=== PATIENT | female | born 1935 | race Caucasian/White ===

== ENCOUNTER 2016-04-28 06:53 | Emergency (ER) | payer OTHER ==
[~2016-04-28] VITALS: Ht 167.6 cm; Wt 66.7 kg
[2016-04-28] MEDS ORDERED: FAMOTIDINE/PF INJ 20 MG/2 ML VIAL IV ONE ×2 (07:00→07:18)
[2016-04-28 07:44] LABS: BASOPHILS # (AUTO) 0.1 /CMM (0.0-0.2); BASOPHILS % (AUTO) 1.2 % (0.0-2.0); DIFF TOTAL % 100 %; EOSINOPHILS % (AUTO) 0.6 % (0.0-6.0); HEMATOCRIT 47 % (33-45); HEMOGLOBIN 15.5 g/dL (11.5-14.8); LYMPHOCYTES # (AUTO) 1.4 /CMM (0.8-4.8); MEAN CORPUSCULAR HEMOGLOBIN 29 PG (26.0-33.0); MEAN CORPUSCULAR HGB CONC 33 g/dl (31.0-36.0); MEAN CORPUSCULAR VOLUME 89 fL (82-100); MONOCYTES # (AUTO) 0.6 /CMM (0.1-1.30); MONOCYTES % (AUTO) 8.7 % (2.0-12.0); NEUTROPHILS # (AUTO) 4.6 /CMM (1.8-8.9); NEUTROPHILS % (AUTO) 68.5 % (43.0-81.0); PLATELET COUNT (AUTO) 303 /CMM (150-450); RED BLOOD CELL COUNT(AUTO) 5.26 MIL/uL (4.0-5.2); WHITE BLOOD COUNT (AUTO) 6.8 K/uL (4.3-11.0)
[2016-04-28 07:54] LABS: ANION GAP 10 (5-14); CARBON DIOXIDE 30 mmol/L (21-32); CHLORIDE 97 mmol/L (98-107); CREATININE 0.7 mg/dL (0.6-1.3); GLUCOSE 117 mg/dL (74-106); POTASSIUM 3.7 mmol/L (3.5-5.1); SODIUM SERUM 133 mmol/L (136-145); UREA NITROGEN, BLOOD 18 mg/dL (7-18)
[2016-04-28 08:00] LABS: ALANINE AMINOTRANSFERASE 24 U/L (12-78); ALBUMIN 4.1 g/dL (3.4-5.0); ASPARTATE AMINOTRANSFERASE 14 U/L (15-37); BILIRUBIN,DIRECT 0.1 mg/dL (0.0-0.2); BILIRUBIN,TOTAL 0.5 mg/dL (0.2-1.0); INDIRECT BILIRUBIN 0.4 mg/dL (0.0-1.1); TOTAL PROTEIN, SERUM 7.7 g/dL (6.4-8.2)
[2016-04-28 08:02] LABS: LACTIC ACID 1.6 mmol/L (0.4-2.0); TROPONIN I < 0.017 ng/mL (0.00-0.056)
[2016-04-28] MEDS ORDERED: ATEN50TA PO (08:14)
[2016-04-28] MEDS ORDERED: MELO-270 PO (08:14)
[2016-04-28] MEDS ORDERED: HYDR12.5 PO (08:14)
[2016-04-28 08:53] LABS: KETONES,URINE NEGATIVE (NEGATIVE); LEUKOCYTE ESTERASE ,URINE NEGATIVE (NEGATIVE); PH,URINE 6.5 (5.0-8.0)
[2016-04-28 08:54] LABS: ADD UA MICROSCOPIC YES
[2016-04-28 09:00] LABS: ADD URINE CULTURE NO; WBC,URINE 0-2 /HPF (0-3)
[2016-04-28] MEDS ORDERED: BOOST PLUS FOOD-CHOCLATE 237 ML BOX PO ONE (10:30)
[2016-04-28 12:18] VITALS: BP 158/76
== END 2016-04-28 12:43 | disposition short-term general hospital (02) ==
LOC: ER 06:54
DX: R25.1 Tremor, unspecified (principal); I10 Essential (primary) hypertension; C50.911 Malignant neoplasm of unspecified site of right female breast; Z88.2 Allergy status to sulfonamides; Z90.11 Acquired absence of right breast and nipple; Z98.890 Other specified postprocedural states
CPT/HCPCS: 36415; 71010; 80048; 80076; 81001; 83605; 83690; 84484; 85025; 87040 ×2; 87081; 87086; 93005; 96374; 99285; A4606; J3490; 81000-TC; Z7610

== ENCOUNTER 2016-06-01 22:06 | Inpatient (IN) | payer OTHER ==
[~2016-06-01] VITALS: Ht 170.2 cm; Wt 63.5 kg
[~2016-06-01 22:06] MED LIST: ATEN50TA PO; HYDR12.5 PO; MELO-270 PO
[2016-06-01] MEDS ORDERED: IV NS 0.9% 1,000 ML BAG IV ONE (22:30)
[2016-06-01] MEDS ORDERED: IV NS 0.9% 1,000 ML ONE (22:45)
[2016-06-01] MEDS ORDERED: IV SET PRIMARY 1 EA INFUS.SET MC ONE (22:45)
--- NOTE | 2016-06-01 22:45 | NUR ---
PT ALTERED BREATHING EFFORTLESSLY ON ROOM AIR, PT BIBA S/P TAKING HER MEDICATIONS ON A SI ATTEMPT. PER EMS PT FOUND ON BED WITH OPEN PILL BOTTLES AND A SI NOTE. IV PLACED PRIOR TO ARRIVAL, PT ON MONITOR, EKG DONE, MADE AWARE, WILL CONTINUE TO MONTIOR.
[2016-06-01 23:13] LABS: BASOPHILS # (AUTO) 0.2 /CMM (0.0-0.2); BASOPHILS % (AUTO) 1.5 % (0.0-2.0); EOSINOPHILS % (AUTO) 0.2 % (0.0-6.0); HEMATOCRIT 48 % (33-45); HEMOGLOBIN 16.3 g/dL (11.5-14.8); LYMPHOCYTES # (AUTO) 0.9 /CMM (0.8-4.8); MEAN CORPUSCULAR HEMOGLOBIN 31 PG (26.0-33.0); MEAN CORPUSCULAR HGB CONC 34 g/dl (31.0-36.0); MEAN CORPUSCULAR VOLUME 90 fL (82-100); MONOCYTES # (AUTO) 0.3 /CMM (0.1-1.30); MONOCYTES % (AUTO) 2.7 % (2.0-12.0); NEUTROPHILS % (AUTO) 88.6 % (43.0-81.0); PLATELET COUNT (AUTO) 344 /CMM (150-450); RDW COEFFICIENT OF VARIATION 13.5 (11.5-15.0); RED BLOOD CELL COUNT(AUTO) 5.32 MIL/uL (4.0-5.2); WHITE BLOOD COUNT (AUTO) 12.4 K/uL (4.3-11.0)
[2016-06-01 23:23] LABS: CALCIUM, SERUM 9.3 mg/dL (8.5-10.1); CARBON DIOXIDE 17 mmol/L (21-32); CHLORIDE 90 mmol/L (98-107); CREATININE 0.8 mg/dL (0.6-1.3); GLUCOSE 240 mg/dL (74-106); POTASSIUM 4.4 mmol/L (3.5-5.1); SODIUM SERUM 125 mmol/L (136-145); UREA NITROGEN, BLOOD 21 mg/dL (7-18)
[2016-06-01 23:29] LABS: ALANINE AMINOTRANSFERASE 25 U/L (12-78); ALBUMIN 3.4 g/dL (3.4-5.0); ALKALINE PHOSPHATASE 111 U/L (46-116); ASPARTATE AMINOTRANSFERASE 27 U/L (15-37); BILIRUBIN,DIRECT 0.1 mg/dL (0.0-0.2); BILIRUBIN,TOTAL 0.2 mg/dL (0.2-1.0); INR 1.07 (0.87-1.13); PROTHROMBIN TIME 11.1 SECS (9.5-12.7); TOTAL PROTEIN, SERUM 7.7 g/dL (6.4-8.2)
[2016-06-01 23:31] LABS: TROPONIN I < 0.017 ng/mL (0.00-0.056)
[2016-06-01 23:43] LABS: LACTIC ACID 1.9 mmol/L (0.4-2.0)
--- NOTE | 2016-06-01 23:59 | NUR ---
URINE COLLECTED AND PT IS ON MONITOR, MD LAWRENCE MADE AWARE LABS CALLED WILL CONTINUE TO MONITOR.
[2016-06-02 00:10] LABS: SALICYLATE 112.4 mg/dL (2.8-20.0)
--- NOTE | 2016-06-02 00:19 | NUR ---
PT ASSIGNED TO ICU [id number]
[2016-06-02 00:20] LABS: APPEARANCE,URINE CLEAR (CLEAR); BILIRUBIN,URINE NEGATIVE (NEGATIVE); BLOOD, URINE NEGATIVE Ery/uL (NEGATIVE); COLOR,URINE YELLOW (YELLOW); KETONES,URINE TRACE (NEGATIVE); LEUKOCYTE ESTERASE ,URINE NEGATIVE (NEGATIVE); NITRITE, URINE POSITIVE (NEGATIVE); PH,URINE 6.5 (5.0-8.0); PROTEIN,URINE NEGATIVE (NEGATIVE); UGLUCOSE 1+ mg/dL (NEGATIVE); UROBILINOGEN,URINE 0.2 EU/dL (0.2)
[2016-06-02] MEDS ORDERED: PROPOFOL 100 ML IV ONE (00:29)
[2016-06-02] MEDS ORDERED: IV SET PRIMARY PUMP SET 1 EA INFUS.SET MC ONE ×4 (00:29→05:52)
[2016-06-02] MEDS ORDERED: ACETYLCYSTEINE IV 6,000 MG/30 ML VIAL IV ONE ×2 (00:30→02:30)
[2016-06-02 00:33] LABS: ADD URINE CULTURE YES; BACTERIA,URINE None seen /HPF (None Seen); CLINITEST,URINE 1; RBC,URINE 0-2 /HPF (0-2); SQUAMOUS EPITHELIAL CELL,UR Few /HPF (None Seen); WBC,URINE 0-2 /HPF (0-3)
[2016-06-02] MEDS ORDERED: POTASSIUM CL. PREMIX PERIPHER. 50 ML ONE ×2 (00:41→05:52)
[2016-06-02] MEDS ORDERED: SODIUM BICARBONATE SYR 50 MEQ/50 ML DISP.SYRIN ONE ×2 (00:41→00:47)
[2016-06-02] MEDS ORDERED: IV D5W 1,000 ML IV ONE (00:42)
--- NOTE | 2016-06-02 00:57 | NUR ---
SON #[phone] JASWANT VENTURA
--- NOTE | 2016-06-02 00:58 | NUR ---
SPOKE TO DIETER AND PER MD JUANCHO GARCIAS AUTHORIZED PT TO STAY HERE
[2016-06-02] MEDS ORDERED: MISCELLANEOUS MED 1 EA EA XX ONE (01:00)
[2016-06-02] MEDS ORDERED: POTASSIUM CL. PREMIX PERIPHER. 50 ML IV ONE (01:00)
[2016-06-02] MEDS ORDERED: SODIUM BICARBONATE SYR 50 MEQ/50 ML DISP.SYRIN IV ONE (01:00)
[2016-06-02 01:11] LABS: ABG BASE EXCESS -5.2 mmol/L; ABG PCO2 16.4 mmHg (35.0-45.0); ABG PH 7.545 (7.350-7.450); ABG PO2 110.7 mmHg (75.0-100.0); ABG TOTAL HEMOGLOBIN 15.2 G/dL (12.0-16.0); AaDO2 19.4 mmHg; COHb 0.2 % (0.5-1.5); MetHb 0.6 % (0.0-1.5); O2Hb 97.2 % (94.0-97.0); SITE, ABG Right Radial; VENT MODE, BG RA
--- NOTE | 2016-06-02 01:11 | NUR ---
TALKED TO ADALI FROM POISON CONTROLMD MADE AWARE WILL CONTINUE TO MONITOR.
[2016-06-02 01:50] VITALS: BP 137/67
--- NOTE | 2016-06-02 01:50 | NUR ---
ANGELA RN INITIAL NOTE PT RECEIVED FROM ER WITH FAMILY AT BEDSIDE. PT NONVERBAL AND UNABLE TO MAKE NEEDS KNOWN. ON TELE- SINUS DINORA 50'S. ON 2L OF O2 SATING WELL. BEVERLY CATHETER INSERTED WITH STERILE TECHNIQUE AND DRAINING BY GRAVITY. IV SITE INTACT AND FLUSHING WELL. ALL SAFETY MEASURES IN PLACE. BED IN LOWEST POSITION AND LOCKED. WILL CONTINUE TO MONITOR CLOSELY. ALL ORDERS NOTED AND CARRIED OUT.
[2016-06-02] MEDS ORDERED: MAGNESIUM HYDROXIDE 30 ML UDC PO PRN (02:00)
[2016-06-02] MEDS ORDERED: ONDANSETRON HCL/PF 4 MG/2 ML VIAL IVP PRN (02:00)
[2016-06-02] MEDS ORDERED: ACETYLCYSTEINE IV 0 MG in IV D5W 500 ML IV SCH (02:00)
[2016-06-02] MEDS ORDERED: HYDROCODONE/APAP 5/325MG 1 EACH TABLET PO PRN (02:00)
[2016-06-02] MEDS ORDERED: ACETYLCYSTEINE IV 0 MG in IV D5W 1,000 ML IV SCH (02:00)
[2016-06-02] MEDS ORDERED: ACETAMINOPHEN 325 MG TABLET PO PRN (02:00)
[2016-06-02] MEDS ORDERED: Z GUARD REMEDY 2 OZ OINT TP PRN (02:00)
[2016-06-02] MEDS ORDERED: ZOLPIDEM TARTRATE 5 MG TABLET PO PRN (02:00)
[2016-06-02 03:49] LABS: THYROID STIMULATING HORMONE 0.492 uIU/mL (0.358-3.74)
[2016-06-02 04:00] VITALS: BP 117/60
[2016-06-02] MEDS ORDERED: ACETYLCYSTEINE IV SCH ×3 (04:00→10:00)
[2016-06-02] MEDS ORDERED: D5W IV SCH ×3 (04:00→10:00)
[2016-06-02 04:17] LABS: ABG BASE EXCESS -3.5 mmol/L; ABG OXYGEN SATURATION 98.6 % (92.0-98.5); ABG PCO2 12.4 mmHg (35.0-45.0); ABG PH 7.641 (7.350-7.450); ABG PO2 131.1 mmHg (75.0-100.0); ABG TOTAL HEMOGLOBIN 15.5 G/dL (12.0-16.0); AaDO2 53.9 mmHg; COHb 1.5 % (0.5-1.5); MetHb 0.9 % (0.0-1.5); O2Hb 96.2 % (94.0-97.0); SITE, ABG Left Radial; VENT MODE, BG N/C
[2016-06-02 04:38] LABS: APPEARANCE,URINE CLEAR (CLEAR); BILIRUBIN,URINE NEGATIVE (NEGATIVE); BLOOD, URINE 3+ Ery/uL (NEGATIVE); COLOR,URINE YELLOW (YELLOW); KETONES,URINE 2+ (NEGATIVE); LEUKOCYTE ESTERASE ,URINE NEGATIVE (NEGATIVE); NITRITE, URINE POSITIVE (NEGATIVE); PH,URINE 6.5 (5.0-8.0); PROTEIN,URINE TRACE mg/dl (NEGATIVE); UGLUCOSE NEGATIVE (NEGATIVE); UROBILINOGEN,URINE 0.2 EU/dL (0.2)
[2016-06-02 04:44] LABS: ADD URINE CULTURE YES; BACTERIA,URINE Many /HPF (None Seen); RBC,URINE TOO NUMEROUS TO COUN /HPF (0-2); WBC,URINE 0-2 /HPF (0-3)
[2016-06-02 04:45] LABS: SQUAMOUS EPITHELIAL CELL,UR Few /HPF (None Seen)
[2016-06-02 04:47] LABS: POTASSIUM 3.2 mmol/L (3.5-5.1)
[2016-06-02 05:03] LABS: SALICYLATE 110.7 mg/dL (2.8-20.0)
[2016-06-02] MEDS: POTASSIUM CL. PREMIX PERIPHER. 50 ML IV SCH ×4 (06:00→11:23)
[2016-06-02 06:06] LABS: APPEARANCE,URINE CLEAR (CLEAR); BILIRUBIN,URINE NEGATIVE (NEGATIVE); BLOOD, URINE 2+ Ery/uL (NEGATIVE); COLOR,URINE YELLOW (YELLOW); KETONES,URINE 2+ (NEGATIVE); LEUKOCYTE ESTERASE ,URINE NEGATIVE (NEGATIVE); NITRITE, URINE POSITIVE (NEGATIVE); PH,URINE 6.5 (5.0-8.0); PROTEIN,URINE TRACE mg/dl (NEGATIVE); UGLUCOSE TRACE mg/dL (NEGATIVE); UROBILINOGEN,URINE 0.2 EU/dL (0.2)
[2016-06-02 06:17] LABS: ABG BASE EXCESS -3.5 mmol/L; ABG OXYGEN SATURATION 97.9 % (92.0-98.5); ABG PCO2 14.2 mmHg (35.0-45.0); ABG PH 7.616 (7.350-7.450); ABG PO2 105.4 mmHg (75.0-100.0); ABG TOTAL HEMOGLOBIN 14.7 G/dL (12.0-16.0); AaDO2 77.5 mmHg; COHb 0.6 % (0.5-1.5); MetHb 0.9 % (0.0-1.5); O2Hb 96.4 % (94.0-97.0); SITE, ABG Left Radial; VENT MODE, BG N/C
--- NOTE | 2016-06-02 06:30 | NUR ---
ANGELA RN CLOSING NOTE. PT REMAINED IN NO ACUTE DISTRESS DURING SHIFT. FAMILY AT BEDSIDE. ALL NEEDS ATTENDED TO PROMPTLY. SATING WELL AND IV SITES INTACT. BEVERLY CATHETER INTACT AND PATENT. WILL ENDORSE TO NEXT SHIFT FOR BALJEET.
[2016-06-02 06:40] LABS: CALCIUM, SERUM 7.4 mg/dL (8.5-10.1); CREATININE 1.1 mg/dL (0.6-1.3)
[2016-06-02 06:42] LABS: SALICYLATE 101.8 mg/dL (2.8-20.0)
[2016-06-02 06:43] LABS: ADD URINE CULTURE YES; BACTERIA,URINE Moderate /HPF (None Seen); HYALINE CASTS, URINE Rare /LPF (None Seen); SQUAMOUS EPITHELIAL CELL,UR Rare /HPF (None Seen); WBC,URINE 0-2 /HPF (0-3); YEAST,URINE Rare /HPF (None Seen)
--- NOTE | 2016-06-02 07:30 | NUR ---
ANGELA/RN: PT RECEIVED ON O2 2L/MIN VIA NC SPO2 92%, TACHYPNEIC WITH INCREASED LABOR OF BREATHING. FC DRAINING CLOUDY YELLOW URINE. PUPILS, SLUGGISH, REACTIVE TO LIGHT, AWAKENS WITH DEEP STIMULI. AM LABS PENDING. PER NOC SHIFT REPORT, PT ADMITTED TO [facility] FROM ICU DT DNR/DNI STATUS. PLACED ON NON-REBREATHER MASK. O2 SAT INCREASED TO 98%. AWAITING ABG RESULTS
--- NOTE | 2016-06-02 07:55 | NUR ---
ANGELA/RN: PAGED DR HAQ REGARDING PT ABG'S, RESPIRATORY STATUS AWAITING CALL BACK.
[2016-06-02 08:00] VITALS: BP_SYST 77; BP_SYST 99; BP_DIAS 28; BP_DIAS 43
[2016-06-02 08:05] VITALS: BP 99/43
--- NOTE | 2016-06-02 08:08 | NUR ---
MANAGER POST RAPID RESPONSE CALLED; PT WITH RR >40 GASPING FOR AIR; PLACED ON NON-REBREATHER. EXTREMITIES COLD AND CLAMMY. PUPILS SLUGGISH, REACTIVE TO LIGHT. RESPONDS TO DEEP PAIN. STILL AWAITING CALL BACK FROM .
[2016-06-02 08:09] LABS: ABG BASE EXCESS -0.6 mmol/L; ABG OXYGEN SATURATION 99.2 % (92.0-98.5); ABG PCO2 15.1 mmHg (35.0-45.0); ABG PH 7.661 (7.350-7.450); ABG PO2 513.3 mmHg (75.0-100.0); ABG TOTAL HEMOGLOBIN 14.5 G/dL (12.0-16.0); AaDO2 184.6 mmHg; COHb 0.5 % (0.5-1.5); O2Hb 97.7 % (94.0-97.0); SITE, ABG Left Radial; VENT MODE, BG NRB MASK
--- NOTE | 2016-06-02 08:18 | NUR ---
RN NOTES CALLED PT'S SON, JASWANT- [phone], SPOKE WITH HIM IN REGARDS TO PT DECLINING CONDITION, ASKED SON IF WE COULD PLACE ON BIPAP, JASWANT STATED " HE DOESNT WANT ANY LIFE PROLONGING INTERVENTIONS, HE STATED " PT DOES NOT WANT IT, SHE WANTS TO GO". SON WANTS TO KEEP HER COMFORTABLE. PT HAS HX OF METASTATIC BREAST CN
[2016-06-02] MEDS ORDERED: PANTOPRAZOLE 40 MG TABLET.DR PO SCH (08:30)
[2016-06-02] MEDS ORDERED: MORPHINE SULFATE INJ 2 MG/ML DISP.SYRIN IV PRN (08:30)
[2016-06-02] MEDS ORDERED: HYDROCHLOROTHIAZIDE 25 MG TABLET PO SCH (09:00)
[2016-06-02] MEDS ORDERED: Sodium Bicarbonate 100 MEQ in IV D5/0.45 NACL 1,000 ML IV PRN (09:00)
[2016-06-02] MEDS ORDERED: SODIUM BICARBONATE SYR 100 MEQ in IV D5/0.45 NACL 1,000 ML IV PRN (09:00)
[2016-06-02] MEDS ORDERED: SODIUM BICARBONATE SYR 100 MEQ in IV D5/0.45 NACL 1,000 ML IV SCH (09:00)
[2016-06-02] MEDS ORDERED: ATENOLOL 50 MG TABLET PO SCH (09:00)
--- NOTE | 2016-06-02 09:15 | NUR ---
ANGELA/RN: DR BADILLO AT THE BEDSIDE; PT CONTINUES TO BE TACHYPNEIC, BP IN MID TO LOW 90'S. NOTIFIED MD PT WITH HX BREAST CA, IS DNR/DNI AND IS ADMITTED FOR TYLENOL TOXICITY DT SUICIDE ATTEMPT. MD ORDERS DECREASE RATE OF BICARB DRIP, STAT CXR. PER MD HOLD X1 MORPHINE DOSE. NOTED, CARRIED OUT.
[2016-06-02 10:03] LABS: CREATININE 1.4 mg/dL (0.6-1.3)
[2016-06-02 10:15] LABS: SALICYLATE 101.3 mg/dL (2.8-20.0)
[2016-06-02 10:33] LABS: ABG BASE EXCESS -1.6 mmol/L; ABG OXYGEN SATURATION 99.2 % (92.0-98.5); ABG PCO2 13.9 mmHg (35.0-45.0); ABG PH 7.661 (7.350-7.450); ABG PO2 391.1 mmHg (75.0-100.0); ABG TOTAL HEMOGLOBIN 14.5 G/dL (12.0-16.0); COHb 0.3 % (0.5-1.5); MetHb 0.9 % (0.0-1.5); SITE, ABG Left Radial; VENT MODE, BG 15LPM NON REBREATHER
--- NOTE | 2016-06-02 11:13 | NUR ---
ANGELA/RN: DR JEAN-BAPTISTE AT THE BEDSIDE, SPEAKING WITH SON. INFORMED MD THAT PT ADMITTED FOR TYLENOL AND ASA TOXICITY DT SUICIDE ATTEMPT. PER "PT IS SUFFERING, HER PROGNOSIS IS POOR. IF HER WISHES ARE DNR/DNI WE NEED TO RESPECT IT." SON STATES "PLEASE, LET IT STOP, SHE IS SUFFERING." DR CANTU NOTIFIED BY DR JEAN-BAPTISTE, PER MD "SHE'S GOING TO PUT IN AN ORDER FOR A MORPHINE DRIP. FOR THE MEANTIME YOU CAN GIVE HER MORPHINE 2MG IVP X1." Addendum: 06/02/16 at 1124 by HUNTER MICHAEL RN SON AND FAMILY AT THE BEDSIDE; ALSO REFUSING FURTHER BLOOD DRAWS.
[2016-06-02] MEDS ORDERED: MORPHINE SULFATE INJ 2 MG/ML DISP.SYRIN IV ONE (11:30)
[2016-06-02 12:00] VITALS: BP 87/33
[2016-06-02] MEDS ORDERED: MORPHINE SULFATE PF DRIP 250 MG in IV D5W 240 ML IV PRN (12:00)
--- NOTE | 2016-06-02 12:20 | NUR ---
ANGELA/RN: DR CANTU AT THE BEDSIDE; DISCUSSING POC WITH SON, JASWANT VENTURA. SON PROVIDED DPOA, PER SON "HER WISHES FOR THE PAST FEW YEARS HAVE BEEN DNR/DNI. SHE DOES NOT WANT HER LIFE PROLONGED, SHE HAS BEEN FIGHTING BREAST CA FOR OVER 20 YEARS. WE DON'T WANT HER TO SUFFER." MD IN AGREEMENT, PER MD "HER PROGNOSIS IS POOR, IT WOULD BE IN THE PATIENT'S BEST INTEREST TO KEEP HER COMFORTABLE AND TO RESPECT HER WISHES." COMFORT CARE ORDERS NOTED AND CARRIED OUT.
[2016-06-02] MEDS ORDERED: SET PCA INFUSE SET 1 EA INFUS.SET MC ONE (12:38)
[2016-06-02] MEDS ORDERED: SCOPOLAMINE HBR 1 EA PATCH.TD72 TD SCH (15:00)
--- NOTE | 2016-06-02 15:30 | NUR ---
ANGELA/RN: 1457: PT PRONOUNCED BY CLAUDIO Hauser STATISTICAL PROGRAMMER. NO SPONTANEOUS BREATHS, AUSCULTATED HEART SOUNDS, PALPABLE PULSES, NO REFLEXES NOTED. FAMILY AT THE BEDSIDE 1500: DR CANTU, NURSING ORNAMENTAL METAL WORKER HELPER NOTIFIED. 1530: [facility] CALLED. PAPERWORK SIGNED BY SON; PER JASWANT "I STILL NEED TO MAKE MORTUARY ARRANGEMENTS."
--- NOTE | 2016-06-02 18:45 | NUR ---
RN NOTE: GLOVE PAIRER'S CASE FILED. CASE # [id number]; GLOVE PAIRER'S NAME: ERROL. CALLED SON JASWANT AT [phone] TO NOTIFY OF CASE. NO ANSWER, LEFT CALL BACK NUMBER. VEHICLE CARE SPECIALIST, LEFTY SUP NOTIFIED.
== END 2016-06-02 14:57 | disposition expired | DRG 917 ==
LOC: ER 22:07 → ICU 06-02 01:26 → TELE1 06-02 01:51 → TELE-TD 06-02 02:09 → MEDSG1 06-02 13:58
PROVIDERS: ADMIT Internal Medicine; ATTEND Family Medicine
DX: T39.012A Poisoning by aspirin, intentional self-harm, initial encounter (principal); J96.01 Acute respiratory failure with hypoxia; G92 Toxic encephalopathy; Z51.5 Encounter for palliative care; N17.9 Acute kidney failure, unspecified; E87.1 Hypo-osmolality and hyponatremia; E87.4 Mixed disorder of acid-base balance; E87.6 Hypokalemia; I95.9 Hypotension, unspecified; I10 Essential (primary) hypertension; E78.5 Hyperlipidemia, unspecified; Z85.3 Personal history of malignant neoplasm of breast; Z90.11 Acquired absence of right breast and nipple; T39.1X1A Poisoning by 4-Aminophenol derivatives, accidental (unintentional), initial encounter; H35.30 Unspecified macular degeneration; E86.0 Dehydration; Z66 Do not resuscitate; F32.9 Major depressive disorder, single episode, unspecified
CPT/HCPCS: 36415; 36600; 70450-TC; 71010-TC; 80048-TC; 80076-TC; 81000-TC; 82803-TC; 82962-TC; 83605-TC; 84443-TC; 84484-TC; 85025-TC; 85730-TC; 87081-TC; 87086-TC; 87186-TC; 94799-TC; A4606; G0480; G6039-TC; J0132; J2270; J2274; J3480; J3490; J7030; J7060; J7070; Z7610